=== PATIENT | male | born 1985 | race Caucasian/White ===

== ENCOUNTER 2025-02-02 02:09 | Emergency (ER) | payer BC ==
[2025-02-02] MEDS: Lidocaine/Epineph/Tetracaine 3 ML Syringe TOP ONE (03:20)
[2025-02-02] MEDS: Lidocaine 1% with EPINEPHrine 1:200,000 30 ML SDV INJECT ONE (04:23)
[2025-02-02] MEDS: Lidocaine 1% with EPINEPHrine 1:200,000 30 ML SDV ONE (04:23)
[2025-02-02] MEDS: Lidocaine 2% with EPINEPHrine 1:200,000 20 ML SDV INJECT ONE (04:23)
== END 2025-02-02 04:48 | disposition home or self-care (01) ==
LOC: MW.ED 02:09
DX: L02.31 Cutaneous abscess of buttock (principal); F17.200 Nicotine dependence, unspecified, uncomplicated; Z88.0 Allergy status to penicillin; Z79.899 Other long term (current) drug therapy
CPT/HCPCS: 10060; 99283; A9270; J2004